=== PATIENT | female | born 1990 | race Caucasian/White ===

== ENCOUNTER 2016-07-02 22:53 | Emergency (ER) | payer MEDICAID, OTHER ==
[2016-07-02] MEDS ORDERED: AMOXICILLIN TRIHYDRATE 250 MG CAPSULE ONE (23:49)
== END 2016-07-02 23:59 | disposition home or self-care (01) ==
LOC: ED 22:53
DX: K08.89 Other specified disorders of teeth and supporting structures (principal)
CPT/HCPCS: 99282; 64400 ×2; 99283; A9270